=== PATIENT | male | born 1995 ===

== ENCOUNTER 2018-11-01 14:25 | Emergency (ER) | payer OTHER ==
[~2018-11-01] VITALS: Ht 175.3 cm; Wt 90.7 kg
[~2018-11-01 14:25] MED LIST: CRUTCH2 XX; IBUP600 PO
== END 2018-11-01 15:44 | disposition home or self-care (01) ==
LOC: ER 14:25
DX: S00.01XA Abrasion of scalp, initial encounter (principal); W22.8XXA Striking against or struck by other objects, initial encounter; Y99.0 Civilian activity done for income or pay
CPT/HCPCS: 99283

== ENCOUNTER 2018-11-02 15:38 | Emergency (ER) | payer OTHER ==
[~2018-11-02] VITALS: Ht 177.8 cm; Wt 90.7 kg
== END 2018-11-02 17:25 | disposition home or self-care (01) ==
LOC: ER 15:38
DX: S06.0X0A Concussion without loss of consciousness, initial encounter (principal); W22.8XXA Striking against or struck by other objects, initial encounter
CPT/HCPCS: 70450; 99284-25

== ENCOUNTER → 2019-02-10 | Outpatient (CLI) | payer BC, OTHER ==
[2019-02-10 12:01] LABS: BASOPHILS ABSOLUTE AUTO 0.03 K/mm3 (0.00-0.23); BASOPHILS PERCENT AUTO 0 % (0-2); EOSINOPHILS ABSOLUTE AUTO 0.12 K/mm3 (0.00-0.68); EOSINOPHILS PERCENT AUTO 2 % (0-6); Hematocrit 44.5 % (37.0-53.0); Hemoglobin 15.6 g/dL (13.5-17.5); IMMATURE GRAN ABSOLUTE AUTO 0.03 K/mm3 (0.00-0.10); IMMATURE GRAN PERCENT AUTO 0 % (0-1); LYMPHOCYTES ABSOLUTE AUTO 2.57 K/mm3 (0.84-5.20); LYMPHOCYTES PERCENT AUTO 34 % (21-46); MONOCYTES ABSOLUTE AUTO 0.51 K/mm3 (0.16-1.47); MONOCYTES PERCENT AUTO 7 % (4-13); Mean Corpuscular HGB 30.1 pg (26.0-34.0); Mean Corpuscular HGB Conc 35.1 g/dL (31.5-36.5); Mean Corpuscular Volume 86 fL (80-100); NEUTROPHILS ABSOLUTE AUTO 4.42 K/mm3 (1.96-9.15); NEUTROPHILS PERCENT AUTO 58 % (41-73); Platelet Count 275 K/mm3 (150-400); RDW Coefficient Variation 12.5 % (11.7-14.2); RDW Standard Deviation 39.1 fL (35.1-46.3); Red Blood Cell Count 5.18 M/mm3 (4.30-5.90); White Blood Cell Count 7.68 K/mm3 (4.00-11.30)
[2019-02-10 12:22] LABS: Anion Gap 10 mmol/L (6-16); Blood Urea Nitrogen 19 mg/dL (8-24); Bun/Creatinine Ratio 19.2 (12.0-20.0); CO2, Blood 26 mmol/L (21-32); Calcium, Blood 9.1 mg/dL (8.5-10.1); Chloride, Blood 100 mmol/L (98-108); Creatinine, Blood 0.99 mg/dL (0.60-1.20); Glomerular Filtration Rate >60 (60-); Glucose, Blood 105 mg/dL (70-99); Potassium, Blood 3.7 mmol/L (3.5-5.5); Sodium, Blood 136 mmol/L (136-145); Thyroid Stimulating Hormone 1.047 uIU/mL (0.360-4.800)
== END | disposition home or self-care (01) ==
LOC: LAB EV 11:56 → LAB SHORT 11:56
PROVIDERS: Physician Assistant Surgical
DX: R42 Dizziness and giddiness (principal); R53.83 Other fatigue
CPT/HCPCS: 80048; 84443; 85025

== ENCOUNTER 2020-12-09 08:54 | Emergency (ER) | payer BC, OTHER ==
[~2020-12-09] VITALS: Ht 177.8 cm; Wt 93.0 kg
[2020-12-09] MEDS ORDERED: DICY20 PO (10:34)
[2020-12-09] MEDS ORDERED: PROM25 PO (10:34)
[2020-12-09] MEDS ORDERED: Zithromax Tri-500 MG PO (10:34)
== END 2020-12-09 11:18 | disposition home or self-care (01) ==
LOC: ER 08:54
DX: A08.8 Other specified intestinal infections (principal)
CPT/HCPCS: 99284

== ENCOUNTER 2020-12-20 08:04 | Emergency (ER) | payer BC, OTHER ==
[~2020-12-20] VITALS: Ht 177.8 cm; Wt 95.2 kg
[~2020-12-20 08:04] MED LIST changes: +DICY20 PO; +PROM25 PO; +Zithromax Tri-500 MG PO
[2020-12-20] MEDS ORDERED: HYDR1TAB94 PO (10:57)
== END 2020-12-20 11:11 | disposition home or self-care (01) ==
LOC: ER 08:04
DX: S43.004A Unspecified dislocation of right shoulder joint, initial encounter (principal); Z88.8 Allergy status to other drugs, medicaments and biological substances; W08.XXXA Fall from other furniture, initial encounter; Y92.009 Unspecified place in unspecified non-institutional (private) residence as the place of occurrence of the external cause
CPT/HCPCS: 23650; 36415; 73020; 73030; 99152; 99283-25; A9270; J2704; J7030